=== PATIENT | female | born 1960 | race African-American/Black ===

== ENCOUNTER 2023-05-16 14:38 | Emergency (ER) | payer OTHER ==
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
[2023-05-16 15:12] VITALS: BP 145/74; PULSE 95; RESP 28; TEMP 98.6
== END 2023-05-16 20:48 | disposition home or self-care (01) ==
LOC: EC 14:38
DX: F41.9 Anxiety disorder, unspecified (principal); F14.10 Cocaine abuse, uncomplicated; Z79.899 Other long term (current) drug therapy
CPT/HCPCS: 99283